=== PATIENT | male | born 1955 | race Caucasian/White ===

== ENCOUNTER 2017-10-04 00:08 | Day surgery (SDC) | payer BC ==
[~2017-10-04] VITALS: Ht 195.6 cm; Wt 107.5 kg
[~2017-10-04 00:08] MED LIST: APIX5TAB PO; ASPI-757 PO; CEPH-13 PO; DILT360C35 PO; GLUC100026 PO; LOSA50TA72 PO
[2017-10-04 06:12] VITALS: BP 122/82
[2017-10-04] MEDS ORDERED: LIDOCAINE/SOD BICARB 8.4% SYR ID ONE (06:30)
[2017-10-04] MEDS ORDERED: NORMOSOL R SOLN(*) 1000 ML BAG 1,000 ML IV PRN (06:30)
[2017-10-04] MEDS ORDERED: MIDAZOLAM 2 MG/2 ML VIAL IVP PRN (06:30)
[2017-10-04 08:52] VITALS: BP 124/81
[2017-10-04 09:00] VITALS: BP 120/78
[2017-10-04 09:13] VITALS: BP 104/72
[2017-10-04 09:16] VITALS: BP 106/71
== END 2017-10-04 09:38 | disposition left against medical advice (07) ==
LOC: OR 00:08
PROVIDERS: ATTEND Internal Medicine
DX: Z12.11 Encounter for screening for malignant neoplasm of colon (principal); D12.3 Benign neoplasm of transverse colon
CPT/HCPCS: 88305

== ENCOUNTER 2017-10-09 13:38 | Emergency (ER) | payer BC ==
[~2017-10-09] VITALS: Ht 194.3 cm; Wt 113.4 kg
[2017-10-09] MEDS ORDERED: NS(*) 0.9% 1000 ML BAG 1,000 ML IV ONE (13:48)
[2017-10-09] MEDS ORDERED: ONDANSETRON 4 MG/2 ML VIAL IVP ONE (13:50)
--- NOTE | 2017-10-09 13:51 | ER Report ---
History and Physical Time Seen By MD: 13:50 Hx. of Stated Complaint: pt is dizzy, back pain, has not had a bm for 3 days, fatigue, body aches. Seems to think ithas a relation to his colonoscopy on Saturday HPI/ROS CHIEF COMPLAINT: Constipation doesn't feel well HISTORY OF PRESENT ILLNESS: 62-year-old male who approximately 6 days prior to presentation had a colonoscopy done the patient states that 2 days afterwards felt fine be started getting constipated general malaise weakness nausea without vomiting nonspecific nonlocalized abdominal discomfort otherwise unremarkable no chest pain no cough fever chills patient's pack-a-day smoker patient also describing some low back discomfort as well going on episodically for last couple days Postel lumbar area REVIEW OF SYSTEMS: Respiratory: No cough, no dyspnea. Cardiovascular: No chest pain, no palpitations. Gastrointestinal: No vomiting, no abdominal pain. Musculoskeletal: Low back pain Remainder of the 14 system rev: Yes Allergies: Coded Allergies: No Known Drug Allergies (Unverified , 10/09/17) Home Meds Active Scripts Losartan Potassium (LOSARTAN POTASSIUM) 50 Mg Tablet, 50 MG PO QDAY for 90 Days , #90 TAB 2 Refills Prov:MADIHA GUZMAN MD 09/06/17 Reported Medications Aspirin (ASPIRIN) 325 Mg Tablet, 325 MG PO Q4-6H Y for a fib, TAB 05/13/17 Glucosamine Sulfate 2KCL (GLUCOSAMINE) 1,000 Mg Tablet, 1000 MG PO DAILY 05/09/17 Reviewed Nurses Notes: Yes Old Medical Records Reviewed: Yes Hx Smoking: Yes (1 PPD FOR LONG TIME) Smoking Status: Current: Every Day Smoker Hx Alcohol Use: Yes Constitutional Vital Sign - Last 24 Hours 10/09/17 10/09/17 10/09/17 10/09/17 13:44 13:45 14:00 14:08 Temp 100.5 Pulse 81 73 Resp 20 B/P (MAP) 127/95 127/95 (106) 119/87 (98) Pulse Ox 92 92 O2 Delivery Room Air 10/09/17 14:30 B/P (MAP) 131/88 (102) Physical Exam General Appearance: The patient is alert, has no immediate need for airway protection and no current signs of toxicity. [ ] Eyes: Pupils equal and round no injection. Respiratory: Chest is non tender, lungs are clear to auscultation. Cardiac: regular rate and rhythm [ ] Gastrointestinal: Abdomen is soft and non tender, no masses, bowel sounds normal. Musculoskeletal: Neck: Neck is supple and non tender. Extremities have full range of motion and are non tender. Skin: No rashes or lesions. [ ] DIFFERENTIAL DIAGNOSIS: After history and physical exam differential diagnosis was considered for bowel perforation postanesthesia reaction general malaise viral influenza viral infection cardiac abnormality Medical Decision Making Data Points Result Diagram: 10/09/17 1352 10/09/17 1352 Laboratory Hematology Test 10/09/17 13:52 10/09/17 13:54 10/09/17 15:10 Red Blood Count 5.21 M/uL (4.00-5.60) Mean Corpuscular Volume 98.0 fL (80.0-96.0) Mean Corpuscular Hemoglobin 33.8 pg (26.0-33.0) Mean Corpuscular Hemoglobin Concent 34.5 g/dL (32.0-36.0) Red Cell Distribution Width 13.8 % (11.5-14.5) Mean Platelet Volume 7.9 fL (7.2-11.1) Neutrophils (%) (Auto) 60.7 % (39.4-72.5) Lymphocytes (%) (Auto) 19.7 % (17.6-49.6) Monocytes (%) (Auto) 18.8 % (4.1-12.4) Eosinophils (%) (Auto) 0.0 % (0.4-6.7) Basophils (%) (Auto) 0.8 % (0.3-1.4) Nucleated RBC Relative Count (auto) 0.0 /100WBC Neutrophils # (Auto) 2.8 K/uL (2.0-7.4) Lymphocytes # (Auto) 0.9 K/uL (1.3-3.6) Monocytes # (Auto) 0.9 K/uL (0.3-1.0) Eosinophils # (Auto) 0.0 K/uL (0.0-0.5) Basophils # (Auto) 0.0 K/uL (0.0-0.1) Nucleated RBC Absolute Count (auto) 0.00 K/uL Prothrombin Time 13.1 seconds (12.0-14.4) Prothromb Time International Ratio 0.99 Activated Partial Thromboplast Time 27 seconds (23-35) Sodium Level 138 mmol/L (137-145) Potassium Level 4.0 mmol/L (3.5-5.0) Chloride Level 105 mmol/L (98-107) Carbon Dioxide Level 21 mmol/L (22-30) Blood Urea Nitrogen 17 mg/dl (9-21) Creatinine 1.40 mg/dl (0.66-1.25) Glomerular Filtration Rate Calc 51.2 Random Glucose 91 mg/dl (75-110) Calcium Level 9.0 mg/dl (8.4-10.2) Total Bilirubin 0.4 mg/dl (0.2-1.3) Aspartate Amino Transf (AST/SGOT) 31 U/L (0-35) Alanine Aminotransferase (ALT/SGPT) 36 U/L (0-56) Alkaline Phosphatase 53 U/L (0-126) Total Protein 6.8 gm/dl (6.3-8.2) Albumin 3.9 g/dl (3.5-5.0) Lipase 42 U/L (23-300) Serum Alcohol < 10 mg/dl Influenza Virus Type A (PCR) Negative (NEGATIVE) Influenza Virus Type B (PCR) Positive (NEGATIVE) Urine Color Yellow Urine Clarity Clear Urine pH 5.0 pH (4.8-9.5) Urine Specific [place] 1.027 Urine Protein Negative mg/dL (NEGATIVE) Urine Glucose (UA) Negative mg/dL (NEGATIVE) Urine Ketones Negative mg/dL (NEGATIVE) Urine Blood Negative (NEGATIVE) Urine Nitrite Negative (NEGATIVE) Urine Bilirubin Negative (NEGATIVE) Urine Urobilinogen Negative mg/dL (0.2-1.9) Urine Leukocyte Esterase Negative (NEGATIVE) Urine RBC <1 /HPF (0-2/HPF) Urine WBC <1 /HPF (0-5/HPF) Urine Squamous Epithelial Cells Moderate /LPF (</=FEW) Urine Bacteria Negative /HPF (NONE-FEW) Urine Mucus None /HPF (NONE-FEW) Chemistry Test 10/09/17 13:52 10/09/17 13:54 10/09/17 15:10 White Blood Count 4.6 k/uL (4.5-11.0) Red Blood Count 5.21 M/uL (4.00-5.60) Hemoglobin 17.6 g/dL (14.0-18.0) Hematocrit 51.1 % (42.0-52.0) Mean Corpuscular Volume 98.0 fL (80.0-96.0) Mean Corpuscular Hemoglobin 33.8 pg (26.0-33.0) Mean Corpuscular Hemoglobin Concent 34.5 g/dL (32.0-36.0) Red Cell Distribution Width 13.8 % (11.5-14.5) Platelet Count 168 K/uL (150-450) Mean Platelet Volume 7.9 fL (7.2-11.1) Neutrophils (%) (Auto) 60.7 % (39.4-72.5) Lymphocytes (%) (Auto) 19.7 % (17.6-49.6) Monocytes (%) (Auto) 18.8 % (4.1-12.4) Eosinophils (%) (Auto) 0.0 % (0.4-6.7) Basophils (%) (Auto) 0.8 % (0.3-1.4) Nucleated RBC Relative Count (auto) 0.0 /100WBC Neutrophils # (Auto) 2.8 K/uL (2.0-7.4) Lymphocytes # (Auto) 0.9 K/uL (1.3-3.6) Monocytes # (Auto) 0.9 K/uL (0.3-1.0) Eosinophils # (Auto) 0.0 K/uL (0.0-0.5) Basophils # (Auto) 0.0 K/uL (0.0-0.1) Nucleated RBC Absolute Count (auto) 0.00 K/uL Prothrombin Time 13.1 seconds (12.0-14.4) Prothromb Time International Ratio 0.99 Activated Partial Thromboplast Time 27 seconds (23-35) Glomerular Filtration Rate Calc 51.2 Calcium Level 9.0 mg/dl (8.4-10.2) Total Bilirubin 0.4 mg/dl (0.2-1.3) Aspartate Amino Transf (AST/SGOT) 31 U/L (0-35) Alanine Aminotransferase (ALT/SGPT) 36 U/L (0-56) Alkaline Phosphatase 53 U/L (0-126) Total Protein 6.8 gm/dl (6.3-8.2) Albumin 3.9 g/dl (3.5-5.0) Lipase 42 U/L (23-300) Serum Alcohol < 10 mg/dl Influenza Virus Type A (PCR) Negative (NEGATIVE) Influenza Virus Type B (PCR) Positive (NEGATIVE) Urine Color Yellow Urine Clarity Clear Urine pH 5.0 pH (4.8-9.5) Urine Specific [place] 1.027 Urine Protein Negative mg/dL (NEGATIVE) Urine Glucose (UA) Negative mg/dL (NEGATIVE) Urine Ketones Negative mg/dL (NEGATIVE) Urine Blood Negative (NEGATIVE) Urine Nitrite Negative (NEGATIVE) Urine Bilirubin Negative (NEGATIVE) Urine Urobilinogen Negative mg/dL (0.2-1.9) Urine Leukocyte Esterase Negative (NEGATIVE) Urine RBC <1 /HPF (0-2/HPF) Urine WBC <1 /HPF (0-5/HPF) Urine Squamous Epithelial Cells Moderate /LPF (</=FEW) Urine Bacteria Negative /HPF (NONE-FEW) Urine Mucus None /HPF (NONE-FEW) Coagulation Test 10/09/17 13:52 Prothrombin Time 13.1 seconds Prothromb Time International Ratio 0.99 Activated Partial Thromboplast Time 27 seconds Toxicology Test 10/09/17 13:52 Serum Alcohol < 10 mg/dl Urinalysis Test 10/09/17 15:10 Urine Color Yellow Urine Clarity Clear Urine pH 5.0 pH (4.8-9.5) Urine Specific [place] 1.027 Urine Protein Negative mg/dL (NEGATIVE) Urine Glucose (UA) Negative mg/dL (NEGATIVE) Urine Ketones Negative mg/dL (NEGATIVE) Urine Blood Negative (NEGATIVE) Urine Nitrite Negative (NEGATIVE) Urine Bilirubin Negative (NEGATIVE) Urine Urobilinogen Negative mg/dL (0.2-1.9) Urine Leukocyte Esterase Negative (NEGATIVE) Urine RBC <1 /HPF (0-2/HPF) Urine WBC <1 /HPF (0-5/HPF) Urine Squamous Epithelial Cells Moderate /LPF (</=FEW) Urine Bacteria Negative /HPF (NONE-FEW) Urine Mucus None /HPF (NONE-FEW) ED Course/Re-evaluation ED Course ED clinical course this is a 62-year-old male comes in with general malaise does not feel well had a colonoscopy does answer my perfect x-ray CAT scan shows no obvious signs of any abdominal abnormalities except some chronic diverticulosis without diverticulitis I he is influenza B-positive we'll diagnose accordingly and follow up with primary care Decision to Disposition Date: Oct 09, 2017 Decision to Disposition Time: 15:40 Depart Departure Latest Vital Signs Vital Signs Date Time Temp Pulse Resp B/P (MAP) Pulse Ox O2 Delivery O2 Flow Rate FiO2 10/09/17 14:30 131/88 (102) 10/09/17 14:08 73 92 10/09/17 13:44 100.5 20 Room Air Impression: Primary Impression: Influenza Condition: Improved Disposition: HOME OR SELF-CARE Referrals: PHAN AMADOR MD 5 Days Patient Instructions: Influenza (DC) CARLY GALLEGOS MD Oct 09, 2017 13:51
[2017-10-09 14:02] LABS: PLATELET COUNT, AUTOMATED 168 K/uL (150-450)
[2017-10-09 14:08] LABS: INR 0.99
--- NOTE | 2017-10-09 14:21 | EKG ---
FACILITY: [facility] - [place] PATIENT NAME: ISAIAS ANAYA : [id number] MR: [id number] V: [id number] EXAM DATE: ORDERING PHYSICIAN: CARLY GALLEGOS TECHNOLOGIST: Florian Baez Reason : Blood Pressure : / mmHG Vent. Rate : 077 BPM Atrial Rate : 077 BPM P-R Int : 162 ms QRS Dur : 086 ms QT Int : 376 ms P-R-T Axes : 021 018 051 degrees QTc Int : 425 ms Sinus rhythm Probable left atrial enlargement When compared with ECG of 13-MAY-2017 08:20, No significant change was found Confirmed by DEANA MARTIN ([id number]) on 10/10/2017 6:13:04 AM Referred By: Confirmed By:DEANA MARTIN
[2017-10-09] MEDS ORDERED: NS 0.9% 150 ML BAG 150 ML ONE (14:54)
[2017-10-09] MEDS ORDERED: IOPAMIDOL 76% 75 ML INFUS BTL 75 ML ONE (14:54)
--- NOTE | 2017-10-09 15:09 | RADIOLOGY IMAGING REPORT ---
FACILITY: [facility] - [place], [place] PATIENT NAME: Alfie Long : 1955 MR: [id number] V: [id number] EXAM DATE: ORDERING PHYSICIAN: CARLY GALLEGOS TECHNOLOGIST: Location: [facility] Patient: Alfie Long : 1955 Visit/Account:[id number] Date of Sevice: 10/09/2017 2 VIEWS CHEST INDICATION: Cough, fatigue and chest pain for 2 days. COMPARISON: 05/09/2017. FINDINGS: Cardiomediastinal silhouette and pulmonary vessels within normal limits. There is no focal infiltrate or lobar consolidation. There is no pneumothorax or pleural effusion. No nodule. Upper abdomen is unremarkable. No acute bony abnormality. IMPRESSION: 1. No acute cardiopulmonary process. Report Dictated By: Farhad Lamar at 10/09/2017 3:03 PM Report E-Signed By: Farhad Lamar at 10/09/2017 3:04 PM WSN:[id number]
--- NOTE | 2017-10-09 15:27 | RADIOLOGY IMAGING REPORT ---
FACILITY: [facility] PATIENT NAME: Alfie Long : 1955 MR: [id number] V: [id number] EXAM DATE: ORDERING PHYSICIAN: CARLY GALLEGOS TECHNOLOGIST: Location: [facility] - [place] Patient: Alfie Long : 1955 Visit/Account:[id number] Date of Sevice: 10/09/2017 ABDOMEN/PELVIS WITH CONTRAST History: 62-year-old male with abdominal pain.. Technique: CT images were obtained through the abdomen and pelvis with intravenous contrast using: I sovue-370 75 mls. Coronal and sagittal reformations were then created. One of the following dose optimization techniques was utilized in the performance of this exam: Autom ated exposure control; adjustment of the mA and/or kV according to the patient's size; or use of an i terative reconstruction technique. Specific details can be referenced in the facility's radiology C T exam operational policy. Comparison study: None Findings: Lung bases: Negative Hepatobiliary: Low-density lesions in the dome of the left lobe of the liver represent small indeterm inate cyst most likely. In segment 7 there is a subcapsular peripherally enhancing structure that li matt represents a hemangioma. No additional solid lesions are noted. The gallbladder is collapsed, but there is no gallstone disease or biliary ductal dilatation. Spleen: Negative. Adrenals: Negative Pancreas: Negative. Kidneys/genitourinary/retroperitoneum: There is a left lateral renal cyst. No solid masses are noted and there is no hydronephrosis. There is an extrarenal pelvis on the left side.. Bowel/peritoneum/mesentery: There is a normal appendix in the right lower quadrant. There are no dil ated loops of large or small bowel to suggest ileus or obstruction. There are scattered diverticula the sigmoid colon but there are no findings of diverticulitis. Pelvic/genital urinary: The bladder is unremarkable. There is benign appearing enlargement of the pr ostate. There is no inguinal hernia. Vessels: Negative. Lymph node: Negative. Body wall/bones: Negative IMPRESSION: 1. No findings to explain this patient's abdominal pain. 2. Diverticulosis without diverticulitis. 3. Subcapsular hemangioma measuring 2.4 cm in segment 7 of the liver. 4. BPH. Report Dictated By: Venkat Deng MD at 10/09/2017 3:18 PM Report E-Signed By: Venkat Deng MD at 10/09/2017 3:23 PM WSN:[email or web address]
[2017-10-09 15:43] VITALS: BP 146/93
== END 2017-10-09 15:46 | disposition home or self-care (01) ==
LOC: ER 13:56
DX: J11.1 Influenza due to unidentified influenza virus with other respiratory manifestations (principal)
CPT/HCPCS: 71046; 74177; 80320; 81001; 83690; 85025; 85610; 85730; 87502; 93005; 96361; 96374; 99284; J2405; J7030; Q9967; 82040; 82247; 82310; 82374; 82435; 82565; 82947; 84075; 84132; 84155; 84295; 84450; 84460; 84520